=== PATIENT | male | born 1955 | race Caucasian/White ===

== ENCOUNTER 2024-11-09 06:26 | Emergency (ER) | payer MEDICARE, MEDICAID ==
[~2024-11-09] VITALS: Ht 170.2 cm; Wt 61.2 kg
--- NOTE | 2024-11-09 07:06 | NUR ---
REPORT GIVEN TO KENNETH TRAN AT THIS TIME
[2024-11-09] MEDS: ORPHENADRINE 60MG/2ML IM ONE (07:34)
[2024-11-09] MEDS: ketOROlac 30MG VIAL (30MG/ML) IM ONE (07:35)
--- NOTE | 2024-11-09 07:35 | NUR ---
PT REQUESTING LIGHTS OFF, BLANKET AND NOT TO BE BOTHERED.
--- NOTE | 2024-11-09 07:39 | ERN ---
General Chief Complaint: Knee Injury/Swelling Stated Complaint: KNEE PAIN Time Seen by MD: 07:10 Source: patient History of Present Illness Initial Comments Patient is a 69-year-old male coming in complaining of chronic body ache. Patient states that he has been having knee discomfort it is able to walk but has been has a any. Along with the knee discomfort he states that he had back pains and pain he states that this has been ongoing for several years. Allergies: Coded Allergies: No Known Drug Allergies (Unverified Allergy, Unknown, 11/09/24) Past Medical History Past Medical History: Other Medical History Other: PARKINSON'S Past Surgical History: Other ROS Dictation CONSTITUTIONAL: No chills, no fever, no weakness, no diaphoresis, no malaise. HEAD/FACE: No signs of trauma. EENT: No eye pain, no blurred vision, no tearing, no double vision, no ear pain, no ear discharge, no nose pain, no nasal congestion, no throat pain, no throat swelling, no mouth pain. RESPIRATORY: No cough, no orthopnea, no SOB, no stridor, no wheezing. CARDIOVASCULAR: No chest pain, no edema, no palpitations, no syncope. GASTROINTESTINAL/ABDOMINAL: No abdominal pain, no constipation, no diarrhea, no nausea, no vomiting. GENITOURINARY: No abnormal discharge, no dysuria, no frequent urination, no hematuria. No complaints of pain in the genitals. MUSCULOSKELETAL: No back pain, no gout, no joint pain, joint swelling, muscle pain, no muscle stiffness, no neck pain. INTEGUMENTARY: No change in color, no change in hair/nails, no dryness, no lesion, no lumps, no rash. NEUROLOGICAL/PSYCH: No anxiety, not depressed, no emotional problem, no heada josee, no numbness, no pre-existing deficit, no history of seizures, no tremors, no weakness. HEMATOLOGIC/LYMPHATIC: Not anemic, no history of blood clots, no apparent bleeding, no bruising, glands not swollen. All Systems Negative, Except as Noted. Physical Exam Physical Exam Dictation VITAL SIGNS: Reviewed. GENERAL APPEARANCE: Alert, oriented x3, no acute distress, obese. HEAD AND FACE: Non-traumatic. EYES: PERRL, pink conjunctivas, eyelid no trauma, anterior chamber clear. EARS: Pinnas intact and no signs of trauma or erythema. Ear canals clear and no discharge. TMs no erythema. NOSE: No discharge, no bleeding. OROPHARYNX: Mouth normal, teeth no caries, tongue pink. Pharynx clear, no erythema. Tonsils no exudates, no abscesses noted. Mucous membrane moist. NECK: Supple, non-tender, no thyromegaly, no masses, no JVD, no bruits. BREAST: Deferred. CHEST: No tenderness, no crepitus, no paradoxical movement, no retractions. LUNGS: Clear, well-ventilated, symmetric, no rales, no wheezing, no rhonchi, no stridor, good breath sounds bilaterally. HEART: Regular rate, regular rhythm, no murmur, no gallops. VASCULAR: No peripheral edema. ABDOMEN: Soft, positive bowel sounds, nondistended, no guarding, nontender, no rebound, no masses no hepatomegaly, no splenomegaly, no Lucas's sign, no hernias. RECTAL: Deferred. GENITAL: Deferred. NEUROLOGICAL: Normal speech, gross motor function intact, gross sensory function intact. MUSCULOSKELETAL: Neck nontender, full range of motion, back nontender, full range of motion. EXTREMITIES: Nontender, full range of motion. SKIN: Color pink, dry, no turgor, no rash, no lacerations, no abrasions, no contusions. LYMPHATICS: Deferred. MDM MDM: Differential diagnosis: Chronic body ache, chronic pain, fibromyalgia, Rationale: Tests considered and ordered secondary to shared decision making include: Previous outside records reviewed: Old ER visits. Risk of complication and/or morbidity or mortality of patient management: None Medications-Per medication reconciliation Patient is a 69-year-old male coming in to be evaluated for chronic body aches. On physical exam patient is able to ambulate walk without limitations. Patient was given anti-inflammatory medication and will be discharged in stable condition with a diagnosis of chronic body aches. ED Course Orders Procedure Category Date Status Time Orphenadrine Citrate PHA 11/09/24 Complete (Norflex) 07:30 Ketorolac PHA 11/09/24 Complete Tromethamine 30mg/Ml 07:30 Current Medications Medications (Trade) Dose Ordered Sig/Ling Route PRN Reason Start Time Stop Time Status Last Admin Dose Admin Ketorolac Tromethamine (toRADol) 30 mg ONCE ONCE IM 11/09/24 07:30 11/09/24 07:31 DC 11/09/24 07:35 Orphenadrine Citrate (Norflex) 60 mg ONCE ONCE IM 11/09/24 07:30 11/09/24 07:31 DC 11/09/24 07:34 Vital Signs Date Time Temp Pulse Resp B/P (MAP) Pulse Ox O2 Delivery O2 Flow Rate FiO2 11/09/24 06:42 98.8 79 17 135/75 100 Room Air* 0 21 11/09/24 06:38 97.3 82 17 135/84 100 Room Air 0 DX & DISP Disposition: Discharge Departure Impression: Primary Impression: Chronic pain Additional Impression: Fibromyalgia Condition: Stable Additional Instructions: FOLLOW-UP WITH PRIMARY CARE PROVIDER IN 1 TO 2 DAYS. TAKE MEDICATIONS DIRECTED HERE IN THE EMERGENCY ROOM. OKAY TO CONTINUE HOME MEDICATIONS UNLESS OTHERWISE DISCUSSED DURING YOUR VISIT IN THE EMERGENCY ROOM TODAY. RETURN TO YOUR NEAREST EMERGENCY ROOM IF SYMPTOMS WORSEN OR IF THERE IS NO IMPROVEMENT. CALL 911 IF YOU NEED IMMEDIATE ASSISTANCE. TAKE TYLENOL [id number] NEEDED AND IF NO CONTRAINDICATIONS ARE PRESENT. INCREASE ORAL HYDRATION. A WOUND CULTURE OR URINE CULTURE WAS ORDERED HERE IN THE EMERGENCY ROOM DEPARTMENT PLEASE FOLLOW-UP WITH PRIMARY CARE PROVIDER AND ADVISE THEM TO GET REPEAT PORTS FROM OUR FACILITY. IF YOU HAD ANY DOTTIE WRAP/SPLINTS THAT WERE APPLIED HERE, PLEASE DO NOT REMOVE THEM UNTIL YOU SEE YOUR PRIMARY CARE OR SPECIALTY. Referrals: Referrals: SELF,REFERRAL (PCP) LUCA MORFIN MD Time of Disposition: 07:38 ROBERTO CARLOS BETTS MD Nov 09, 2024 07:39
[2024-11-09 07:54] VITALS: BP 134/66; PULSE 76; RESP 17; TEMP 98.8; O2SAT 100
--- NOTE | 2024-11-09 08:35 | NUR ---
[employer] 2 INFORMED ME OF INCIDENT WHEN ABOUT TO TAKE PT UP FRONT TO LOBBY INTO WHEELCHAIR PT HAD A SLIP GUIDED FALL TO FLOOR LANDING ON BUTTOCKS. MADE PATIENT CONTACT PT DENIES ANY COMPLAINTS. PT IS ASKING FOR WATER AND FOOD. PT IS AOX4.
== END 2024-11-09 08:15 | disposition home or self-care (01) ==
LOC: EDH 06:26
DX: G89.29 Other chronic pain (principal); M54.50 Low back pain, unspecified; M79.7 Fibromyalgia
CPT/HCPCS: 99284; 96372 ×2; J1885; J2360

== ENCOUNTER 2024-11-10 12:01 | Emergency (ER) | payer MEDICARE ==
[~2024-11-10] VITALS: Ht 167.6 cm; Wt 74.8 kg
[2024-11-10 12:08] VITALS: BP 97/61; PULSE 83; RESP 16; TEMP 98.6
--- NOTE | 2024-11-10 12:32 | NUR ---
PT IS REFUSING IV ACCESS AND BLOOD DRAW AT THIS TIME.
--- NOTE | 2024-11-10 12:42 | HP ---
[facility] HISTORY AND PHYSICAL Date of Service: Nov 10, 2024 Time of Service: 12:42 HISTORY OF PRESENT ILLNESS: [69-year-old male who presented to the emergency department today due to complaints of slurred speech. According to the patient's to slurred speech started yesterday around 1900H. The called EMS yesterday but the patient refused to go to the emergency department for further evaluation. Today he was evaluated in the ER for slurred speech rule out CVA. His NIH score was 0. ] REVIEW OF SYSTEMS CONSTITUTIONAL: Denies fevers, chills, or night sweats. No unintentional weight loss reported. NEUROLOGICAL: Denies headache, amaurosis fugax, motor weakness, sensory deficit, vertigo/spinning sensation, gait abnormalities, or tremors. ENT: No hearing loss, otalgia, otorrhea, rhinitis, rhinorrhea, hoarseness, or sore throat. CARDIOVASCULAR: Denies any exertional angina, dyspnea on exertion, orthopnea, paroxysmal nocturnal dyspnea, palpitations, life-threatening arrhythmias, claudication. PULMONARY: Denies any shortness of breath, cough, phlegm/sputum, hemoptysis, pleuritic chest pain. SLEEP: Denies morning headaches, daytime somnolence or napping. Denies difficulty falling asleep, staying asleep, waking from sleep. Denies knowledge of snoring. GASTROINTESTINAL: Denies any type of dysphagia to either liquids or solids. Denies nausea, vomiting, pyrosis, early satiety, abdominal pain, diarrhea, constipation, or changes in stool consistency or caliber. Denies coffee-ground emesis, hematemesis, hematochezia, or melanotic stools. GENITOURINARY: Denies frequency, urgency, nocturia, hematuria or incontinence (Storage/Irritative symptoms.) Low urinary stream, straining to void, urinary intermittency or hesitancy, splitting of the voiding stream, terminal dribbling. ENDOCRINOLOGIC: Denies polyuria, polydipsia, polyphagia or heat/cold intolerances. HEMATOLOGIC: Denies thrombophilia/previous clots, or coagulopathy/bleeding disorders. ONCOLOGIC: Denies personal history of malignancy. DERMATOLOGIC: Denies rashes or pruritus. PSYCHIATRIC: Denies any suicidal or homicidal ideation. Denies hallucinations. PAST MEDICAL HISTORY: [ ] PAST SURGICAL HISTORY: [ ] PAST SOCIAL HISTORY: [ ] FAMILY HISTORY: [ ] Coded Allergies: Sulfa (Sulfonamide Antibiotics) (Unverified Allergy, Unknown, 11/10/24) PHYSICAL EXAM GENERAL APPEARANCE: The patient is awake, alert, and oriented, in no acute cardiopulmonary distress. NEUROLOGICAL: Cranial nerves II-XII grossly intact. Motor is 5/5 in bilateral upper and lower extremities proximal to distal. No sensory deficits. HEENT: Face is symmetric. Pupils are equal and reactive. Extraocular movements are intact. NECK: Supple. No JVD. No thyromegaly. No submental, submandibular, pre- /postauricular, occipital or supraclavicular lymphadenopathy. CHEST: Normal chest expansion. No Telemetry. LUNGS: Absence of any rales, rhonchi or any wheezing. CARDIOVASCULAR: Regular. S1 and S2 normal. No appreciable rubs, murmurs or gallops. ABDOMEN: Soft, nontender, and nondistended. There is no rebound, voluntary guarding, or rigidity. : Deferred. No Peterson. EXTREMITIES: Non-edematous and not cyanotic. No clubbing. Good capillary refill. SKIN: No skin breakdown. Vital Sign (Last 24 Hours) 11/10/24 12:08 Temp 98.6 Pulse 83 Resp 16 B/P (MAP) 97/61 Pulse Ox 94 O2 Delivery Room Air O2 Flow Rate 0 LABS: DIAGNOSTICS / RADIOLOGY: [ ] ASSESSMENT: [ ] PLAN: [ ] JORY CEJA AGPCNP Nov 10, 2024 12:42
--- NOTE | 2024-11-10 13:00 | NUR ---
PATIENT ASSESSMENT ATTEMPTED. PATIENT REFUSED TO ANSWER ASSESSMENT QUESTIONS AT THIS TIME. PATIENT EDUCATION PROVIDED ON REASONS FOR INTERVENTIONS. PATIENT CONTINUES TO REFUSE TREATMENT AT THIS TIME.
--- NOTE | 2024-11-10 14:02 | ERN ---
General Chief Complaint: Headache Stated Complaint: WEAKNESS Time Seen by MD: 12:02 Source: patient History of Present Illness Initial Comments PT IS A 69-YEAR-OLD MALE COMING IN TO BE EVALUATED FOR GENERALIZED BODY WEAKNESS. PATIENT STATES THAT HE IS HOMELESS HE WAS BROUGHT IN FOR FURTHER EVALUATION. Allergies: Coded Allergies: Sulfa (Sulfonamide Antibiotics) (Unverified Allergy, Unknown, 11/10/24) Past Medical History Past Medical History: Other Medical History Other: PARKINSON'S Past Surgical History: Other Surgical History Other: HERNIA ROS Dictation CONSTITUTIONAL: NO CHILLS, NO FEVER, NO WEAKNESS, NO DIAPHORESIS, NO MALAISE. HEAD/FACE: NO SIGNS OF TRAUMA. EENT: NO EYE PAIN, NO BLURRED VISION, NO TEARING, NO DOUBLE VISION, NO EAR PAIN, NO EAR DISCHARGE, NO NOSE PAIN, NO NASAL CONGESTION, NO THROAT PAIN, NO THROAT SWELLING, NO MOUTH PAIN. RESPIRATORY: NO COUGH, NO ORTHOPNEA, NO SOB, NO STRIDOR, NO WHEEZING. CARDIOVASCULAR: NO CHEST PAIN, NO EDEMA, NO PALPITATIONS, NO SYNCOPE. GASTROINTESTINAL/ABDOMINAL: NO ABDOMINAL PAIN, NO CONSTIPATION, NO DIARRHEA, NO NAUSEA, NO VOMITING. GENITOURINARY: NO ABNORMAL DISCHARGE, NO DYSURIA, NO FREQUENT URINATION, NO HEMATURIA. NO COMPLAINTS OF PAIN IN THE GENITALS. MUSCULOSKELETAL: NO BACK PAIN, NO GOUT, NO JOINT PAIN, NO JOINT SWELLING, NO MUSCLE PAIN, NO MUSCLE STIFFNESS, NO NECK PAIN. INTEGUMENTARY: NO CHANGE IN COLOR, NO CHANGE IN HAIR/NAILS, NO DRYNESS, NO LESION, NO LUMPS, NO RASH. NEUROLOGICAL/PSYCH: NO ANXIETY, NOT DEPRESSED, NO EMOTIONAL PROBLEM, NO HEADACHE, NO NUMBNESS, NO PRE-EXISTING DEFICIT, NO HISTORY OF SEIZURES, NO TREMORS, NO WEAKNESS. HEMATOLOGIC/LYMPHATIC: NOT ANEMIC, NO HISTORY OF BLOOD CLOTS, NO APPARENT BLEEDING, NO BRUISING, GLANDS NOT SWOLLEN. ALL SYSTEMS NEGATIVE, EXCEPT NOTED. Physical Exam Physical Exam Dictation VITAL SIGNS: REVIEWED. GENERAL APPEARANCE: ALERT, ORIENTED X3, NO ACUTE DISTRESS, OBESE. HEAD AND FACE: NON-TRAUMATIC. EYES: PERRL, PINK CONJUNCTIVAS, EYELID NO TRAUMA, ANTERIOR CHAMBER CLEAR. EARS: PINNAS INTACT AND NO SIGNS OF TRAUMA OR ERYTHEMA. EAR CANALS CLEAR AND NO DISCHARGE. TMS NO ERYTHEMA. NOSE: NO DISCHARGE, NO BLEEDING. OROPHARYNX: MOUTH NORMAL, TEETH NO CARIES, TONGUE PINK. PHARYNX CLEAR, NO ERYTHEMA. TONSILS NO EXUDATES, NO ABSCESSES NOTED. MUCOUS MEMBRANE MOIST. NECK: SUPPLE, NON-TENDER, NO THYROMEGALY, NO MASSES, NO JVD, NO BRUITS. BREAST: DEFERRED. CHEST: NO TENDERNESS, NO CREPITUS, NO PARADOXICAL MOVEMENT, NO RETRACTIONS. LUNGS: CLEAR, WELL-VENTILATED, SYMMETRIC, NO RALES, NO WHEEZING, NO RHONCHI, NO STRIDOR, GOOD BREATH SOUNDS BILATERALLY. HEART: REGULAR RATE, REGULAR RHYTHM, NO MURMUR, NO GALLOPS. VASCULAR: NO PERIPHERAL EDEMA. ABDOMEN: SOFT, POSITIVE BOWEL SOUNDS, NONDISTENDED, NO GUARDING, NONTENDER, NO REBOUND, NO MASSES NO HEPATOMEGALY, NO SPLENOMEGALY, NO SCHMITZ'S SIGN, NO HERNIAS. RECTAL: DEFERRED. GENITAL: DEFERRED. NEUROLOGICAL: NORMAL SPEECH, GROSS MOTOR FUNCTION INTACT, GROSS SENSORY FUNCTION INTACT. MUSCULOSKELETAL: NECK NONTENDER, FULL RANGE OF MOTION, BACK NONTENDER, FULL RANGE OF MOTION. EXTREMITIES: NONTENDER, FULL RANGE OF MOTION. SKIN: COLOR PINK, DRY, NO TURGOR, NO RASH, NO LACERATIONS, NO ABRASIONS, NO CONTUSIONS. LYMPHATICS: DEFERRED. Results Laboratory and Microbiology Labs Reviewed?: Yes MDM MDM: DIFFERENTIAL DIAGNOSIS: WELLNESS EXAM, MALINGERING, CHRONIC BODY ACHES RATIONALE: TESTS CONSIDERED AND ORDERED SECONDARY TO SHARED DECISION MAKING INCLUDE: PREVIOUS OUTSIDE RECORDS REVIEWED: OLD ER VISITS. RISK OF COMPLICATION AND/OR MORBIDITY OR MORTALITY OF PATIENT MANAGEMENT: NONE MEDICATIONS-PER MEDICATION RECONCILIATION NEED FOR HOSPITALIZATION: PATIENT DOES NOT MEET CRITERIA FOR HOSPITALIZATION. PATIENT IS A 69-YEAR-OLD MALE COMING IN COMPLAINING OF GENERALIZED BODY ACHES. NURSE THAT PATIENT REFUSED LABS REFUSED ANY SERVICE AND WISHES TO LEAVE AGAINST MEDICAL ADVICE. ED Course Orders Procedure Category Date Status Time Cbc With Differential LAB 11/10/24 Logged 12:52 Basic Metabolic Panel LAB 11/10/24 Logged 12:52 Urinalysis LAB 11/10/24 Logged W/Microscopic 12:52 Vital Signs Date Time Temp Pulse Resp B/P (MAP) Pulse Ox O2 Delivery O2 Flow Rate FiO2 11/10/24 12:08 98.6 83 16 97/61 94 Room Air 0 DX & DISP Disposition: AMA Departure Impression: Primary Impression: Chronic pain Additional Impression: Fibromyalgia Condition: Against Medical Advice Additional Instructions: WAS INFORMED BY NURSING STAFF THE PATIENT REFUSED LABS AND WISHES TO LEAVE. Referrals: SELF,REFERRAL (PCP) Time of Disposition: 15:46 ROBERTO CARLOS BETTS MD Nov 10, 2024 14:02
--- NOTE | 2024-11-10 16:45 | NUR ---
PATIENT REFUSED TO ALLOW ASSESSMENT DISCHARGE VITALS, OR SIGNATURE OF PAPERWORK ASSOCIATED WITH HIS CARE.
== END 2024-11-10 16:50 | disposition left against medical advice (07) ==
LOC: EDH 12:01
DX: G89.29 Other chronic pain (principal); M79.7 Fibromyalgia; Z88.2 Allergy status to sulfonamides
CPT/HCPCS: 99283